=== PATIENT | female | born 1965 | race Caucasian/White ===

== ENCOUNTER 2019-09-23 00:33 | Observation (INO) | payer MEDICAID, SELFPAY ==
[2019-09-23] VITALS (15 sets, daily range): BP systolic 137–160; BP diastolic 87–114; PULSE 61–89; RESP 14–20; TEMP 36.2–37.3; O2SAT 96–100; BMI 15.8; BMI 18.7
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
[2019-09-23 01:22] LABS: Amphetamine Urine VISTA NEGATIVE (<1000 ng/mL); Barbiturate Urine VISTA NEGATIVE (< 200 ng/mL); Benzodiazepine Urine VISTA NEGATIVE (< 200 ng/mL); Cocaine Urine VISTA NEGATIVE (< 300 ng/mL); Ecstacy Urine VISTA NEGATIVE (< 500 ng/mL); Methadone Urine VISTA NEGATIVE (< 300 ng/mL); PCP Urine VISTA NEGATIVE (< 25 ng/mL); THC Urine VISTA NEGATIVE (< 50 ng/mL); Vista UDS pH Range 5
[2019-09-23 01:25] LABS: Absolute Lymphocyte Count 3.26 X10^3/uL (0.83-4.51); Absolute Neutrophil Count 2.7 X10^3/uL (2.0-7.7); Basophil# 0.08 X10^3/uL; Basophil% 1.2 % (0-1); Eosinophil# 0.33 X10^3/uL; Eosinophils% 4.8 % (0-5); Hematocrit 46.4 % (37-47); Hemoglobin 15.9 g/dL (12.0-15.0); Lymphocyte # 3.26 X10^3/ul (4.0); Mean Corp Hgb Conc 34.3 g/dL (32-36); Mean Corpuscular Hgb 32.3 pg (27.0-32.0); Mean Corpuscular Volume 94.3 fL (81-99); Mean Platelet Vol. 8.9 fl (6.2-12.0); Monocyte# 0.57 X10^3/uL; Monocyte% 8.2 % (0-10); NRBC Flagged by Analyzer 0 % (0-5); Neutrophil # 2.66 X10^3/uL (2.7-7.7); Neutrophil % 38.4 % (47-70); Platelet Count 318 K/mm3 (150-450); RBC Distribution Width CV 13.2 % (11.6-14.6); RBC Distribution Width SD 45.8 fl (35.1-43.9); Red Blood Count 4.92 M/mm3 (4.2-5.4); White Blood Count 6.9 K/mm3 (4.4-11.0)
[2019-09-23 01:38] LABS: Anion Gap 2 (5-15); BUN 7 mg/dL (7-18); BUN/Creat Ratio 11.2 RATIO (10-20); Calcium,Total 8.6 mg/dL (8.5-10.1); Chloride 112 mmol/L (98-107); Creatinine, Serum 0.63 mg/dL (0.55-1.02); EST Glomerular Filtration Rate 105 mL/min (>60); Est Glom Filt Rate - Afr Amer 128 mL/min (>60); Estimated Creatinine Clearance 59.99 ml/min; Glucose 97 mg/dL (74-106); Potassium 4.1 mmol/L (3.5-5.1); Sodium Level 143 mmol/L (136-145)
[2019-09-23] MEDS: Ziprasidone IM 20 MG/ML VIAL IM (01:38)
--- NOTE | 2019-09-23 13:17 | ED.RN ---
PAPERWORK FAXED TO [facility]
--- NOTE | 2019-09-23 15:31 | NURSING ---
313 ASHELFAH ALCOHOL WITHDRAWAL
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
--- NOTE | 2019-09-23 16:04 | ED.RN ---
DR DE LEON INFORMED PT IS UNABLE TO SWALLOW MEDS. THIS NURSE AND DR DE LEON SPOKE WITH THE PHARMACY ABOUT OPTIONS
[2019-09-23 17:57] LABS: Internal QC Validated? YES +Cl - CLEAR BKGD; Pregnancy, Serum, hCG Quali. NEGATIVE Negative
[2019-09-23 18:05] LABS: AST(SGOT) 28 U/L (15-37); Alanine Aminotransfer ALT/SGPT 23 U/L (13-56); Albumin, Serum 3.9 g/dL (3.2-5.0); Alkaline Phosphatase 70 U/L (45-117); Bilirubin, Direct 0.24 mg/dL (0.00-0.30); Globulin 2.7 g/dL (2.2-4.2); Lipase 137 U/L (73-393); Protein, Total 6.6 g/dL (6.4-8.2)
[2019-09-23] MEDS: Phenobarbital 20 MG/5 ML UDC 90 MG PO ×2 (18:07→21:17)
[2019-09-24] MEDS: Phenobarbital 20 MG/5 ML UDC 90 MG PO ×3 (01:24→08:18)
[2019-09-24 01:25] VITALS: BP 159/94; PULSE 66; RESP 16; TEMP 36.7; O2SAT 99
[2019-09-24 05:35] VITALS: BP 157/90; PULSE 64; RESP 16; TEMP 36.5; O2SAT 100
[2019-09-24] MEDS: Thiamine Hydrochloride 100 MG Tablet PO (08:12)
[2019-09-24] MEDS: Folic Acid 1 MG Tablet PO (08:13)
--- NOTE | 2019-09-24 08:15 | PCM.PROGNOTE ---
Patient Problems: Active and Suspected Problems Acute alcohol withdrawal (Acute) Subjective: Chief complaint: Follow-up after admission for acute ankle intoxication/withdrawal. Patient seen and examined. No acute events overnight. Patient states that she was able to sleep last night, good sleep. Denied any withdrawal symptoms. Her blood pressure has been on the higher side, systolic has been in the 150s, other vital signs are stable. \ - Physical Exam Vitals/I&O's: Vital Signs Temp Pulse Resp BP Pulse Ox 97.7 F L 64 16 157/90 H 100 09/24/19 05:35 09/24/19 05:35 09/24/19 05:35 09/24/19 05:35 09/24/19 05:35 Oxygen Delivery Method Room Air Weight: 96 lb Body Mass Index (BMI) 18.7 Intake and Output for Last 24 Hours 09/22/19 09/23/19 09/24/19 23:59 23:59 23:59 Intake Total 480 / 480 Balance 480 / 480 General: Alert, Oriented x3, Cooperative, No apparent distress HEENT: Atraumatic, PERRLA, EOMI, Normocephalic Oral: Moist Mucosa, No Gingival or Mucosal Lesions/ Ulcerations Neck: Supple, No JVD, Negative Carotid Bruits, Trachea Midline, Thyroid Normal Size and Texture Lungs: Clear to auscultation, Normal air movement, No rhonchi, No wheeze, No rales Cardiovascular: Regular rate, Regular Rhythm, Normal S1, Normal S2, PMI Normal Abdomen: Bowel Sounds Present, Soft, Non Tender, Non-Distended, No Hepato-splenomegaly Extremities: No clubbing, No cyanosis, No edema Skin: No rashes, No breakdown Lymphatic: No Cervical, Supraclavicular, or Inguinal Adenopathy Neurological: Cranial nerves II-XII grossly intact, Neuro grossly intact Psych/Mental Status: Normal Affect, Appropriate, Alert and oriented to time, place, person, mood and affect Laboratory Results 09/23/19 11:15: Ethyl Alcohol 5.0 09/23/19 17:29: Total Bilirubin 0.60, Direct Bilirubin 0.24, AST 28, ALT 23, Alkaline Phosphatase 70, Total Protein 6.6, Albumin 3.9, Globulin 2.7, Lipase 137 09/23/19 17:29: Serum , Qual NEGATIVE Current Medications Acetaminophen (Tylenol Liquid) 500 mg PO Q4H PRN PRN PRN Reason: Temp > 100.4 F Folic Acid (Folic Acid) 1 mg PO DAILY@0800 [facility] Gabapentin (Neurontin) 300 mg PO Q8H PRN PRN PRN Reason: moderate to severe anxiety Loperamide HCl (Imodium Liquid) 2 mg PO Q4H PRN PRN PRN Reason: LOOSE STOOLS Ondansetron HCl (Zofran Odt) 8 mg PO Q8H PRN PRN PRN Reason: NAUSEA Phenobarbital (Phenobarbital) 90 mg PO Q4H [facility]; Taper Stop: 09/28/19 01:29 Last Admin: 09/24/19 05:47 Dose: 90 mg Documented by: Thi[facility] ([facility]itamin B[facility]) [facility] Trazodone HCl (Desyrel) 100 mg PO QHS [facility] Last Admin: 09/23/19 22:55 Dose: Not Given Documented by: Medical Necessity - Tobacco Use Smoking Status: Current every day smoker Tobacco Use: Cigarettes Assessment/Plan All Active Problems Acute alcohol withdrawal (Acute) This is a 53 years old female patient presented to the emergency room because of acute alcohol intoxication, remained in the emergency department for more than 14 hours, blood alcohol level dropped down to 5, it was 289 upon arrival to ED and patient was interested in admission and detoxification for acute alcohol withdrawal after talking to the 180 program. #1 acute hypoxic issues/withdrawal: She is on tapering phenobarbital, PRN Tylenol, Bentyl, Neurontin, Imodium, Zofran and trazodone. She is on folic acid and thiamine as well. Routine blood work was unremarkable. LFT and lipase were normal. Serum was negative. Initially, blood alcohol level was 289, repeat level was 5. Her vital signs are stable except slight elevated blood pressure. Plan to monitor blood pressure, continue same treatment. #2 depression: Patient used to be on antidepressants, none for the last 10 years. Continue trazodone nightly. #3 alcohol abuse: Plan as above. #4 tobacco abuse: Refused NicoDerm patch, it causes palpitation for her. #5 DVT prophylaxis: Low risk patient, no prophylaxis indicated, ambulate. This note was generated with [employer] software. It may contain incorrect words, spelling, and punctuation that were not noted in checking the note before signing. Inpatient E&M: 89051 Subs Hosp L2
[2019-09-24 08:27] VITALS: BP 167/103; PULSE 67; RESP 16; TEMP 37; O2SAT 100
--- NOTE | 2019-09-24 10:58 | NURSING ---
pt leaving ama. stated she is doing fine and has an appt for tomorrow with 180. ama papers signed. dr madsen notified.
--- NOTE | 2019-09-24 11:23 | ADDICTION ---
This underwriter mortgage loan met with patient, prior to her discharging AMA, to complete ASAM, AUDIT, MSE and ETHAN. Patient is scheduled to complete full biopsychosocial assessment and treatment planning, at [facility], on 09/25/2019.
--- NOTE | 2019-09-24 11:34 | PCM.DC.SUM ---
Discharge Date and Diagnosis Date of Admission: 09/23/19 Date of Discharge: 09/24/19 - Primary Discharge Diagnosis Acute Problems: Acute alcohol intoxication/withdrawal. - Secondary Discharge Diagnosis Chronic Problems: Chronic Problems Depression (Chronic) Tobacco abuse (Chronic) Alcohol abuse (Chronic) Hospital Course and Treatment Operations: None Procedures: None Summary of Care Provided: The patient is a 53 year old F presented to the emergency room because of acute alcohol intoxication, remained in the emergency department for more than 14 hours, found to have blood alcohol level of 289 upon arrival and blood alcohol level dropped down to 5 on repeat test. Patient was seen by the 180 program staff in the ED and after discussion with the patient, she agreed to be admitted for medical stabilization. 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 We will try to accommodate her request and we change phenobarbital to the liquid form and allowed nursing staff to crush her pills that can be crushed and to give to her. She had no significant symptoms of withdrawal. Her routine blood work was unremarkable. LFT and lipase were normal. Serum test was negative. Urine drug screen was negative. On the day of discharge, I evaluated the patient, states that she slept okay last night, has no significant withdrawal symptoms. I noticed that her blood pressure has been on the higher side, systolic has been in the 150s. Patient denies history of hypertension. I informed the patient that at this point, we will monitor blood pressure and we may need to start her on a blood pressure medication. Shortly after, nursing staff informed me that patient is leaving the hospital AGAINST MEDICAL ADVICE. Patient left AMA. - Physical Exam Vitals/I&O's: Vital Signs Temp Pulse Resp BP Pulse Ox 98.6 F 67 16 167/103 H 100 09/24/19 08:27 09/24/19 08:27 09/24/19 08:27 09/24/19 08:27 09/24/19 08:27 Oxygen Delivery Method Room Air Weight: 96 lb Body Mass Index (BMI) 18.7 Intake and Output for Last 24 Hours 09/22/19 09/23/19 09/24/19 23:59 23:59 23:59 Intake Total 480 / 480 Balance 480 / 480 General: Alert, Oriented x3, Cooperative, No apparent distress HEENT: Atraumatic, PERRLA, EOMI, Normocephalic Oral: Moist Mucosa, No Gingival or Mucosal Lesions/ Ulcerations Neck: Supple, No JVD, Negative Carotid Bruits, Trachea Midline, Thyroid Normal Size and Texture Lungs: Clear to auscultation, No rhonchi, No wheeze, No rales Cardiovascular: Regular rate, Regular Rhythm, Normal S1, Normal S2, PMI Normal Abdomen: Bowel Sounds Present, Soft, Non Tender, Non-Distended, No Hepato-splenomegaly Extremities: No clubbing, No cyanosis, No edema Skin: No rashes, No breakdown Lymphatic: No Cervical, Supraclavicular, or Inguinal Adenopathy Neurological: Cranial nerves II-XII grossly intact, Neuro grossly intact Psych/Mental Status: Normal Affect, Appropriate Laboratory Results 09/23/19 11:15: Ethyl Alcohol 5.0 09/23/19 17:29: Total Bilirubin 0.60, Direct Bilirubin 0.24, AST 28, ALT 23, Alkaline Phosphatase 70, Total Protein 6.6, Albumin 3.9, Globulin 2.7, Lipase 137 09/23/19 17:29: Serum , Qual NEGATIVE Home Medications: Medications to take at Discharge NK 09/23/19 Primary Care Physician: Fazal Clark DO [STAFF PHYSICIAN] - 1-2 Days if not improving Patient Instructions: ED INTOXICATION Alcohol Disposition: Against Medical Advice Minutes spent on discharge:: 26 Patient Condition:: Stable Medical Necessity - Tobacco Use Smoking Status: Current every day smoker Tobacco Use: Cigarettes Meaningful Use Info Meaningful Use Diagnoses (Choose all that apply): None applicable Inpatient E&M: 63219 [facility] Hosp
== END 2019-09-24 11:11 | disposition left against medical advice (07) ==
LOC: ED 15:16 → MS3 15:41
PROVIDERS: Emergency Medicine; Admitting Provider Hospitalist; Emergency Provider Emergency Medicine; PCP Nurse Practitioner Family; Visit Provider Hospitalist
DX: F10.229 Alcohol dependence with intoxication, unspecified (principal); Y90.8 Blood alcohol level of 240 mg/100 ml or more; F10.239 Alcohol dependence with withdrawal, unspecified; F32.9 Major depressive disorder, single episode, unspecified; F17.210 Nicotine dependence, cigarettes, uncomplicated
CPT/HCPCS: 36415; 80048; 80076; 80307; 80320; 83690; 84703; 85025; 96372; 99218; 99285; G0378; G0480

== ENCOUNTER 2019-09-27 21:38 | Emergency (ER) | payer MEDICAID, SELFPAY ==
[2019-09-23 16:25] VITALS: BMI 18.7
[2019-09-27 21:39] VITALS: BP 173/104; PULSE 113; RESP 18; TEMP 36.8; O2SAT 98; BMI 18.8
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
[2019-09-27] MEDS: Ziprasidone IM 20 MG/ML VIAL IM (22:02)
[2019-09-27 22:41] VITALS: BP 117/63; PULSE 82; RESP 18; O2SAT 98
[2019-09-27 22:42] LABS: Amphetamine Urine VISTA NEGATIVE (<1000 ng/mL); Barbiturate Urine VISTA POSITIVE (< 200 ng/mL); Benzodiazepine Urine VISTA NEGATIVE (< 200 ng/mL); Cocaine Urine VISTA NEGATIVE (< 300 ng/mL); Ecstacy Urine VISTA NEGATIVE (< 500 ng/mL); Methadone Urine VISTA NEGATIVE (< 300 ng/mL); PCP Urine VISTA NEGATIVE (< 25 ng/mL); THC Urine VISTA NEGATIVE (< 50 ng/mL); Vista UDS pH Range 5
--- NOTE | 2019-09-27 22:42 | ED.RN ---
patient placed in opposite restraints at this time
[2019-09-27 22:48] LABS: Absolute Lymphocyte Count 2.47 X10^3/uL (0.83-4.51); Absolute Neutrophil Count 2.5 X10^3/uL (2.0-7.7); Basophil# 0.07 X10^3/uL; Basophil% 1.2 % (0-1); Eosinophil# 0.28 X10^3/uL; Eosinophils% 4.8 % (0-5); Hematocrit 41.4 % (37-47); Hemoglobin 14.2 g/dL (12.0-15.0); Lymphocyte # 2.47 X10^3/ul (4.0); Lymphocyte % 42.4 % (19-41); Mean Corp Hgb Conc 34.3 g/dL (32-36); Mean Corpuscular Hgb 32.9 pg (27.0-32.0); Mean Corpuscular Volume 96.1 fL (81-99); Mean Platelet Vol. 9.1 fl (6.2-12.0); Monocyte% 8.6 % (0-10); NRBC Flagged by Analyzer 0 % (0-5); Neutrophil # 2.48 X10^3/uL (2.7-7.7); Neutrophil % 42.7 % (47-70); Platelet Count 241 K/mm3 (150-450); RBC Distribution Width CV 13.4 % (11.6-14.6); RBC Distribution Width SD 47.8 fl (35.1-43.9); Red Blood Count 4.31 M/mm3 (4.2-5.4); White Blood Count 5.8 K/mm3 (4.4-11.0)
[2019-09-27 23:00] VITALS: BP 105/72; PULSE 85; RESP 16; O2SAT 98
[2019-09-27 23:01] LABS: Internal QC Validated? YES +Cl - CLEAR BKGD; Pregnancy, Serum, hCG Quali. NEGATIVE Negative
[2019-09-27 23:04] LABS: Anion Gap 5 (5-15); BUN 7 mg/dL (7-18); BUN/Creat Ratio 14.3 RATIO (10-20); Calcium,Total 8.1 mg/dL (8.5-10.1); Chloride 114 mmol/L (98-107); Creatinine, Serum 0.49 mg/dL (0.55-1.02); EST Glomerular Filtration Rate 140 mL/min (>60); Est Glom Filt Rate - Afr Amer 170 mL/min (>60); Estimated Creatinine Clearance 103.38 ml/min; Glucose 85 mg/dL (74-106); Potassium 3.7 mmol/L (3.5-5.1); Sodium Level 146 mmol/L (136-145)
--- NOTE | 2019-09-27 23:17 | ED.RN ---
restraints d/c at this time
[2019-09-28] VITALS (8 sets, daily range): BP systolic 108–166; BP diastolic 60–96; PULSE 80–84; RESP 14–18; O2SAT 98
--- NOTE | 2019-09-28 06:22 | ED.RN ---
called crisis to see patient at this time
--- NOTE | 2019-09-28 06:25 | ED.RN ---
crisis called back and back and information obtained about patient. chart faxed at this time
--- NOTE | 2019-09-28 08:14 | ED.DEP ---
ED Disposition - Plan for ED Patient: Disposition: Home or Assisted Living Diagnosis: Alcohol abuse, Depression Instructions: ED Depression, ED INTOXICATION Alcohol Referrals: Juan Diane, SAAD [Primary Care Provider] - As soon as possible [facility] [GROUP OF PHYSICIANS] - As soon as possible [facility] [STAFF PHYSICIAN] - As soon as possible
--- NOTE | 2019-09-28 08:51 | ED.RN ---
THIS NURSE REVIEWED D/C INSTRUCTIONS WITH PT. PT VERBALIZED UNDERSTANDING OF INSTRUCTIONS. PT DENIES FURTHER NEEDS OR QUESTIONS AT THIS TIME. PT AMBULATES FROM ROOM ON OWN WITHOUT ASSISTANCE FROM STAFF. PT MOTHER COMING TO PICK PT UP.
== END 2019-09-28 08:52 | disposition home or self-care (01) ==
PROVIDERS: Emergency Medicine; Emergency Provider Emergency Medicine; PCP Nurse Practitioner Family
DX: F10.129 Alcohol abuse with intoxication, unspecified (principal); Z72.0 Tobacco use
CPT/HCPCS: 36415; 80048; 80307; 80320; 84703; 85025; 96372; 99285; G0480; J3486

== ENCOUNTER 2020-11-17 11:05 | Outpatient (RCR) | payer MEDICAID, SELFPAY ==
--- NOTE | 2020-11-17 09:05 | BH.SGPN.GN ---
Behaviors/Verbalizations/Mental Status: [] Eye contact is good. Motor activity is appropriate. Appearance is casual. Speech is Appropriate. Mood is anxious. Affect is congruent. Thoughts are linear and logical. No evidence of psychosis. Reviewed daily check in sheet and no reports of suicidal ideations or intent. Client Response/Progress/Benefit: [] Pt was an active particpant in group discussion Attentive. Provided appropriate feedback. Daily symptom tracker notes 3/5 for anxiety and irritability and 2/5 for depression. This was pt's first day in IOP. Shared with the group that she has been in a dark depression for the past 2 years. Also shared hx of trauma and significant isolation. Self-medicated with alcohol and reports 19 sober at this point. She reports being motivated to makes changes in her life. Group provided support, encouragement, and advice for her first day in IOP which was beneficial. Will continue in IOP to prevent decompensation, increase healthy coping, and to stabilize mood. Narrative Note: []
--- NOTE | 2020-11-17 10:15 | BH.SGPN.GN ---
Behaviors/Verbalizations/Mental Status: []Client alert and oriented, casually dressed and groomed. Eye contact fair. Motor activity appropriate. Speech within normal limits. Affect constricted, mood anxious. Thoughts linear, logical, no signs of hallucinations or delusions Client Response/Progress/Benefit: []Pt was an engaged participant AEB pt contributing to discussion and engaged in activity. Attentive during psychoeducation and taking notes. Appeared to connect with topic of personal pitfalls and how they can impede mental health treatment progress. Pt and peers also discussed reasons why overcoming pitfalls is so challenging. During experiential activity pt along with peers identified several pitfalls from the activity that are also associated with mental health. Pt shared her personal pitfalls include: fear of letting go of things, loneliness, fear of closeness. Benefited from group by increasing awareness of pitfalls which can impact mental health. Progress noted with pt demonstrated decreased anxiety as shown by increased engagement during group sessions. Pt will continue in IOP tx to improve healthy coping, challenge negative thinking and prevent decompensation. Narrative Note: []
--- NOTE | 2020-11-17 11:15 | BH.SGPN.GN ---
Behaviors/Verbalizations/Mental Status: []Client alert and oriented, casually dressed and groomed. Eye contact good. Motor activity appropriate. Speech within normal limits. Affect congruent, mood anxious. Thoughts linear, logical, no signs of hallucinations or delusions. Client Response/Progress/Benefit: []Client receptive of session, engaged throughout AEB client actively listening and contributing to discussion, as well as taking notes. Client completed worksheet identifying personal pitfalls impacting mental health progress. Client identified the following pitfalls: fear of letting herself feel happiness, loneliness, and fear of closeness with others. Group learned different coping skills to help manage pitfalls. Client selected fear of letting herself be happy as the pitfall client wants to overcome. Client plans to work on this by using opposite action and allowing herself to say ?yes? when people reach out to her. Benefited from identifying personal pitfalls and strategies to overcome these pitfalls. Client?s first day of IOP. Client will continue IOP tx to prevent decompensation, learn healthy coping skills, and gain healthy support. Narrative Note: []
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
--- NOTE | 2020-11-19 09:05 | BH.SGPN.GN ---
Behaviors/Verbalizations/Mental Status: []Client alert and oriented, neatly dressed and groomed. Eye contact good. Motor activity restless. Speech within normal limits. Affect constricted, mood anxious and agitated. Thoughts racing, no signs of hallucinations or delusions. Reviewed client?s symptom tracker, no risk for suicidal ideation, plan, or intent as of 11/19/20 Client Response/Progress/Benefit: []Client responded well to session, providing support to peers and attentive. Client reports feeling anxious this morning as client is currently experiencing increased urges to drink. Client is newly sober and shared last night she had many temptations to meet up with friends to drink, but client avoided these. Client shared she used self-talk and just went to bed to avoid drinking. Group and machine operator replanter gave client support and feedback on her boundary and maintaining sobriety. Client shared she has planned to meet up with a positive support after group today to fight the urge to drink. Client also acknowledged progress in coming to IOP today sharing the old me would have stayed home. Appeared to benefit from connecting with peers and getting feedback on maintaining sobriety. Will continue IOP tx to prevent decompensation, improve functioning, and gain healthy coping skills. Narrative Note: []
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
[2020-11-19 11:04] VITALS: BP 154/88; PULSE 90
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
--- NOTE | 2020-11-19 13:38 | BH.DR.ITP ---
Initial Treatment Plan Patient Information Visit Information: ADMISSION DATE: EXPECTED LOS: 4-6 weeks Problems/Symptoms Problem #1:: Depression Symptom:: Sadness, hopelessness, guilt, decreased appetite, erratic sleep, decreased concentration, low motivation, suicidal ideation when intoxicated Problem #2:: Anxiety Symptom:: Worry, rumination, panic attacks, avoidance, reexperiencing, flashbacks
--- NOTE | 2020-11-21 09:05 | BH.SGPN.GN ---
Behaviors/Verbalizations/Mental Status: Eye contact is good. Motor activity is appropriate. Appearance is casual. Speech is appropriate. Mood is anxious. Affect is congruent. Thoughts are linear and logical. No evidence of psychosis. Reviewed daily check in sheet with no reports of suicidal ideations, plan, or intent. Client Response/Progress/Benefit: Client was engaged and provided feedback to others throughout group session. Client reported her emotion of the day as hopeful. Reported feeling overwhelmed and emotionally drained after IOP sessions, and reports a drop in excitement regarding IOP treatment. Clinician and group members discussed and normalized feelings of being overwhelmed and drained during the first few weeks, which client appeared to benefit from. Client indicated per daily symptom tracker that her general mood and ability to function has been the same, reporting depressed mood and agitation as low, and anxiety as low/moderate. Will continue IOP treatment to prevent decompensation, gain health coping skills, and decrease anxiety. Narrative Note: []
--- NOTE | 2020-11-21 10:13 | BH.SGPN.GN ---
Behaviors/Verbalizations/Mental Status: [] Client alert and oriented, casually dressed and groomed. Eye contact good. Motor activity appropriate. Speech within normal limits. Affect congruent, mood anxious and depressed. Thoughts linear, logical, no signs of hallucinations or delusions. Client Response/Progress/Benefit: [] Client active participant AEB providing contributions during group discussion, taking notes, and appeared to listen attentively to peers. Client connected with the topic of relationships. Helped group discuss the benefits of relationships as well as the potential factors maintaining unhealthy relationships. Client stated that her past marriage had taught her to ?keep spaces in your togetherness? in future relationships. Noting that she had felt like she had forgotten her identify when the relationship ended due to a lack of independent self-care throughout the relationship. Client reported her personal upbringing and trauma contributed to her getting involved in past unhealthy relationships. Helped group identify the risk factors for unhealthy relationships which included: poor self-esteem, trauma, loneliness, learned behaviors, and not taking care of own mental health. Worked with group to develop a list of the consequences that unhealthy relationships have on mental health. Appeared to benefit from increasing awareness of the impact unhealthy relationships can have on mental health. Pt to continue IOP to maintain sobriety, improve healthy coping, and reduce depression. Narrative Note: []
--- NOTE | 2020-11-21 11:15 | BH.SGPN.GN ---
Behaviors/Verbalizations/Mental Status: []Client alert and oriented, casually dressed and groomed. Eye contact good. Motor activity appropriate. Speech within normal limits. Affect constricted, mood anxious. Thoughts linear, logical, no signs of hallucinations or delusions. Client Response/Progress/Benefit: []Client responded well to session, engaged and taking notes. Attentive during psychoeducation about characteristics of healthy, unhealthy and abusive relationships. Pt identified within her relationships she does well with being respectful to others. Client reported she has noticed others are being more respectful to her now that she is communicating more kindly. Client stated she wants to work on improving her ability to trust others. Client reported believing everyone is untrustworthy has prevented her from attempting to create new relationships. Recognizes this is holding her back from creating healthy relationships.. Appeared to benefit from brainstorming strategies to build healthier relationships. Will continue IOP tx to improve emotion regulation, improve healthy coping skills and prevent decompensation. Narrative Note: []
--- NOTE | 2020-11-26 11:49 | BH.PSA ---
Suicide Assessment Treatment Plan Recommendations
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
== END 2020-11-27 23:59 ==
LOC: BHIOP 11:05
PROVIDERS: PCP Nurse Practitioner Family; Visit Provider Psychiatry & Neurology Psychiatry
DX: F33.1 Major depressive disorder, recurrent, moderate (principal); F43.10 Post-traumatic stress disorder, unspecified; F41.1 Generalized anxiety disorder; Z72.89 Other problems related to lifestyle; Z79.899 Other long term (current) drug therapy
CPT/HCPCS: 90792; H2012; H2020; S9480; T1002; 90834